=== PATIENT | female | born 1985 | race African-American/Black ===

== ENCOUNTER 2016-08-26 10:48 | Emergency (ER) | payer OTHER ==
[~2016-08-26] VITALS: Ht 157.5 cm; Wt 97.7 kg
[2016-08-26] MEDS ORDERED: IBUPROFEN 800 MG TABLET PO ONE (13:00)
[2016-08-26 13:32] VITALS: BP 137/90
== END 2016-08-26 13:33 | disposition home or self-care (01) ==
LOC: EMS 10:49
DX: H60.92 Unspecified otitis externa, left ear (principal); I10 Essential (primary) hypertension; Z87.891 Personal history of nicotine dependence
CPT/HCPCS: 99283

== ENCOUNTER 2020-07-10 18:34 | Emergency (ER) | payer OTHER ==
[~2020-07-10] VITALS: Ht 157.5 cm; Wt 104.5 kg
[2020-07-10] MEDS ORDERED: ACETAMINOPHEN 500 MG TABLET PO ONE (19:15)
[2020-07-10 19:57] VITALS: BP 132/86
== END 2020-07-10 20:00 | disposition home or self-care (01) ==
LOC: EMS 18:36
DX: K04.7 Periapical abscess without sinus (principal); I10 Essential (primary) hypertension; Z87.891 Personal history of nicotine dependence
CPT/HCPCS: 99283

== ENCOUNTER 2024-01-31 13:15 | Emergency (ER) | payer OTHER ==
[~2024-01-31] VITALS: Ht 157.5 cm; Wt 97.7 kg
[2024-01-31 13:19] VITALS: TEMP 97.9
[2024-01-31] MEDS: ACETAMINOPHEN 500 MG TABLET PO ONE (16:06)
[2024-01-31] MEDS: TRANEXAMIC ACID 1,000 MG/10 ML VIAL TP ONE (16:06)
[2024-01-31] MEDS: LIDOCAINE 1%/EPI 1:200,000/PF 10 ML VIAL SQ ONE (16:06)
[2024-01-31] MEDS: PERTUSS(ACELL),DIPH,TET/PF 0.5 ML SYRINGE [ADULT] IM. ONE (16:07)
[2024-01-31] MEDS: SILVER NITRATE APPLICATOR 1 EA STICK TP ONE (17:09)
[2024-01-31 17:30] VITALS: BP 135/81; PULSE 94; RESP 18; O2SAT 99
== END 2024-01-31 17:45 | disposition home or self-care (01) ==
LOC: EMS 13:15
DX: S61.012A Laceration without foreign body of left thumb without damage to nail, initial encounter (principal); I10 Essential (primary) hypertension; X58.XXXA Exposure to other specified factors, initial encounter; Y93.89 Activity, other specified; Y92.89 Other specified places as the place of occurrence of the external cause; Y99.8 Other external cause status
CPT/HCPCS: 99283; 90715; 90471; J3490 ×2; 99284

== ENCOUNTER 2024-02-02 07:34 | Emergency (ER) | payer OTHER ==
[~2024-02-02] VITALS: Ht 160 cm; Wt 109.1 kg
[2024-02-02 07:38] VITALS: BP 157/99; PULSE 90; RESP 20; TEMP 98.6; O2SAT 99
[2024-02-02] MEDS: BACITRACIN 0.9 GM PACKET OINTMENT TP ONE (07:49)
[2024-02-02] MEDS ORDERED: BACI28.410 TP (08:24)
== END 2024-02-02 08:51 | disposition home or self-care (01) ==
LOC: EMS 07:39
DX: S61.012A Laceration without foreign body of left thumb without damage to nail, initial encounter (principal); I10 Essential (primary) hypertension; Z48.00 Encounter for change or removal of nonsurgical wound dressing; X58.XXXA Exposure to other specified factors, initial encounter; Y93.89 Activity, other specified; Y92.89 Other specified places as the place of occurrence of the external cause; Y99.8 Other external cause status
CPT/HCPCS: 97597; 99283; 99284

== ENCOUNTER 2024-02-05 07:31 | Emergency (ER) | payer OTHER ==
[~2024-02-05] VITALS: Ht 160 cm; Wt 104.5 kg
[~2024-02-05 07:31] MED LIST: BACI28.410 TP
[2024-02-05 07:33] VITALS: TEMP 98.2
[2024-02-05 10:05] VITALS: BP 152/87; PULSE 79; RESP 20; O2SAT 100
== END 2024-02-05 10:37 | disposition home or self-care (01) ==
LOC: EMS 07:39
DX: S61.012D Laceration without foreign body of left thumb without damage to nail, subsequent encounter (principal); I10 Essential (primary) hypertension; Z87.891 Personal history of nicotine dependence; X58.XXXD Exposure to other specified factors, subsequent encounter
CPT/HCPCS: 99281; Z7502